=== PATIENT | male | born 1950 | race Asian ===

== ENCOUNTER 2016-08-22 08:49 | Day surgery (SDC) | payer OTHER ==
[2016-08-22] MEDS ORDERED: Lidocaine Topical 2% 30 mL Jelly ONE (10:21)
== END 2016-08-22 23:59 | disposition home or self-care (01) ==
LOC: END 08:49
PROVIDERS: ATTEND Internal Medicine Gastroenterology
DX: K21.9 Gastro-esophageal reflux disease without esophagitis (principal); R05 Cough